=== PATIENT | female | born 1960 | race African-American/Black ===

== ENCOUNTER 2019-01-12 10:12 | Inpatient (IN) | payer OTHER ==
[2019-01-12 10:38] VITALS: BMI 32.3
--- NOTE | 2019-01-12 11:01 | HP ---
COWS - Scale Resting Pulse: 1= [place] 81-100 Sweatin= Chills/Flushing Restless Observation: 1= Difficult to Sit Still Pupil Size: 1= Pupils >than Normal Bone or Joint Aches: 2= Severe Diffuse Aches Runny Nose/ Eye Tearin= Nasal Congestion GI Upset > 30mins: 2= Nausea/Diarrhea Tremor Observation: 1= Tremor Bulger, Not Seen Yawning Observation: 0= None Anxiety or Irritability: 2=Irritable/Anxious Goose Flesh Skin: 0=Smooth Skin COWS Score: 12 CIWA Score - Admission Criteria OASAS Guidelines: Admission for Medically Managed Detox: Requires at least one of the followin. CIWA greater than 12 2. Seizures within the past 24 hours 3. Delirium tremens within the past 24 hours 4. Hallucinations within the past 24 hours 5. Acute intervention needed for co occurring medical disorder 6. Acute intervention needed for co occurring psychiatric disorder 7. Severe withdrawal that cannot be handled at a lower level of care (continued vomiting, continued diarrhea, abnormal vital signs) requiring intravenous medication and/or fluids 8. Admission ROS [facility] Allergies/Adverse Reactions: Allergies Allergy/AdvReac Type Severity Reaction Status Date / Time cats Allergy Uncoded 01/12/19 10:25 History of Present Illness: 58 yo with afib, and HTN, with OUD- says she wants to stop using. States she uses 3-4 bags of heroin a day-IH. Says has been heroin using for 30 days- has tried to stop. Was able to be opioid free for about 4 months when she stayed in [place]. When she returned to [facility] about 3 weeks ago restarted with heroin. Says she wants to stop. Has thought about [facility] treatment with Suboxone or methadone. Pt states she was living with BF- but broke up last week. Has been living with a friend. Pt states she does not work and will not have a place to stay after leaving here. Has no financial resources. PCP- [facility] Heroin 3-4 bags/day, no h/o OD, no narcan kit- pt instructed to get one from pharmacy Cocaine- occ THC- occ DUR- no meds - Ebola screening Have you traveled outside of the country in the last 21 days: No Have you had contact with anyone from an Ebola affected area: No - Review of Systems Constitutional: No Symptoms Reported EENT: reports: No Symptoms Reported Respiratory: reports: No Symptoms reported Cardiac: reports: No Symptoms Reported GI: reports: No Symptoms Reported : reports: No Symptoms Reported Musculoskeletal: reports: No Symptoms Reported Integumentary: reports: No Symptoms Reported Neuro: reports: No Symptoms reported Endocrine: reports: No Symptoms Reported Hematology: reports: No Symptoms Reported Psychiatric: reports: No Sypmtoms Reported, other (no suicidial/homicidal ideations) Patient History - Patient Medical History Hx Cardiac Disorders: Yes (a fib on medications) Hx Hypertension: Yes - Patient Surgical History Past Surgical History: No - PPD History PPD to be Administered?: Yes - Smoking Cessation Smoking history: Former smoker Have you smoked in the past 12 months: No Hx Chewing Tobacco Use: No Initiated information on smoking cessation: No - Substances abused Heroin Substance route: Inhalation Frequency: Daily Amount used: 3-4 bags Age of first use: 28 Date of last use: 01/09/19 Crack Substance route: Smoking Frequency: 1-2 times per week Amount used: 2 bags Age of first use: 28 Date of last use: 01/08/19 Admission Physical Exam BHS - Vital Signs Vital Signs: Vital Signs - 24 hr 01/12/19 10:33 Temperature 97.5 F L Pulse Rate 96 H Respiratory 20 Rate Blood Pressure 143/94 - Physical General Appearance: Yes: Within Normal Limits, Mild Distress HEENTM: Yes: Within Normal Limits, Hearing grossly Normal Respiratory: Yes: Within Normal Limits, Chest Non-Tender Neck: Yes: Within Normal Limits Cardiology: Yes: Irregularly Irregular Abdominal: Yes: Within Normal Limits, Non Tender, Protuberent Back: Yes: Within Normal Limits, Normal Inspection Musculoskeletal: Yes: Within Normal Limits Extremities: Yes: Within Normal Limits Neurological: Yes: Within Normal Limits, software quality assurance specialist II-XII NML intact, Fully Oriented Integumentary: Yes: Within Normal Limits, Normal Color - Diagnostic (1) Opioid use disorder Current Visit: Yes Status: Acute (2) Atrial fibrillation Current Visit: Yes Status: Acute (3) Cocaine use Current Visit: Yes Status: Acute (4) Marijuana use Current Visit: Yes Status: Acute (5) HTN (hypertension) Current Visit: Yes Status: Acute Inpatient Rehab Admission - Rehab Decision to Admit Inpatient rehab admission?: No
[2019-01-12] MEDS ORDERED: IBUPROFEN 400 MG TABLET (FP) PO PRN (11:11)
[2019-01-12] MEDS ORDERED: MENTHOL/PHENOL 1 EACH UD MM PRN (11:11)
[2019-01-12] MEDS ORDERED: MAGNESIUM HYDROX 2400MG/30ML ORAL SUSPENSION 30 ML CUP PO PRN (11:11)
[2019-01-12] MEDS ORDERED: hydrOXYzine PAMOATE 25 MG CAPSULE (FP) PO PRN (11:11)
[2019-01-12] MEDS ORDERED: NALOXONE HCL 0.4 MG/ML VIAL IM PRN (11:11)
[2019-01-12] MEDS ORDERED: MAG HYDROX/AL HYDROX/SIMETH 30 ML UNIT-DOSE CUP PO PRN (11:11)
[2019-01-12] MEDS ORDERED: BISMUTH SUBSALICYLATE 524 MG/30 ML UD PO PRN (11:11)
[2019-01-12] MEDS ORDERED: clonazePAM 0.5 MG TABLET PO PRN (11:11)
[2019-01-12] MEDS ORDERED: cloNIDine HCL 0.1 MG TABLET PO PRN (11:11)
[2019-01-12] MEDS ORDERED: MAGNESIUM CITRATE 300 ML BOTTLE PO PRN (11:11)
[2019-01-12] MEDS ORDERED: ACETAMINOPHEN 325 MG TABLET (FP) PO PRN ×2 (11:11)
[2019-01-12] MEDS ORDERED: MELATONIN 5 MG TABLETS PO PRN (11:11)
[2019-01-12] MEDS ORDERED: METHADONE HCL 10 MG TABLET (FOR DETOX USE ONLY) PO ONE (11:11)
[2019-01-12] MEDS ORDERED: METHOCARBAMOL 500 MG TABLET PO PRN (11:11)
[2019-01-12] MEDS: LOSARTAN POTASSIUM 50 MG TABLET (FP) PO SCH (21:40)
[2019-01-12] MEDS: THIAMINE HCL 100 MG TABLET (FP) PO SCH (21:40)
[2019-01-12] MEDS: APIXABAN 5 MG TABLET PO SCH (21:40)
[2019-01-12] MEDS: CARVEDILOL 25 MG TABLET (FP) PO SCH (21:40)
--- NOTE | 2019-01-13 08:38 | CONSULT ---
[facility] Psychiatric Consult - Data Date of interview: 01/13/19 Admission source: Self-referred Identifying data: Ms Jordan is a 58 years old single Black female, mother of 2 children, unemployed receiving food stamp, living with a froend seeking detox treatment fot opioid and cocaine Substance Abuse History: Reports history of heroin and crack cocaine use. Refer to addiction counselor's summary for further information Medical History: Significant for hypertension and AFib. Psychiatric History: Denies history of previous psychiatric treatment. However, reports feeling mildly depressed and sleeping poorly. Told script writer that she was medicated with Melatonin last night and did not find it helpful Physical/Sexual Abuse/Trauma History: Denies history of emotional, physical or sexual abuse as well as DV relationship Mental Status Exam - Mental Status Exam Alert and Oriented to: Time, Place, Person Cognitive Function: Fair Patient Appearance: Well Groomed Mood: Depressed (mildly) Patient Behavior: Cooperative Speech Pattern: Clear Voice Loudness: Normal Thought Process: Intact, Goal Oriented Hallucinations: Denies Suicidal Ideation: Denies Homicidal Ideation: Denies Insight/Judgement: Poor Sleep: Poorly Appetite: Good Muscle strength/Tone: Normal Gait/Station: Normal Psychiatric Findings - Problem List ([place] 1, 2,3) (1) Substance induced mood disorder Current Visit: Yes Status: Acute (2) Substance-induced sleep disorder Current Visit: Yes Status: Acute (3) Uncomplicated opioid dependence Current Visit: Yes Status: Acute (4) Cocaine abuse Current Visit: Yes Status: Acute (5) Atrial fibrillation Current Visit: Yes Status: Acute (6) HTN (hypertension) Current Visit: Yes Status: Acute - Initial Treatment Plan Initial Treatment Plan: 1) Start Belsomra 10 mg po HS prn for insomnia. 2) Continue inpatient detoxification
[2019-01-13] MEDS ORDERED: METHADONE HCL 5 MG TABLET (FOR DETOX USE ONLY) PO ONE (10:00)
[2019-01-13 10:06] LABS: HEMATOCRIT 38.6 % (32.4-45.2); HEMOGLOBIN 12.7 GM/dL (10.7-15.3); MCH 32.3 pg (25.7-33.7); MEAN CELL VOLUME 97.9 fl (80-96); MEAN PLT VOLUME 8.6 fl (7.5-11.1); PLATELET COUNT 265 K/MM3 (134-434); RBC 3.94 M/mm3 (3.60-5.2); WHITE BLOOD COUNT 4.4 K/mm3 (4.0-10.0)
[2019-01-13 10:11] LABS: ALBUMIN 3.5 g/dl (3.4-5.0); BILIRUBIN,TOTAL 1.3 mg/dL (0.2-1); BLOOD UREA NITROGEN 16.4 mg/dL (7-18); CREATININE 0.8 mg/dL (0.55-1.3); POTASSIUM 4.4 mmol/L (3.5-5.1); TOT PROT 6.2 g/dl (6.4-8.2)
[2019-01-13] MEDS: PRENATAL VITAMINS W/ FOLIC ACID TABLET (FP) PO SCH (10:26)
[2019-01-13] MEDS: NIFEdipine E.R 60 MG TABLET (UD) PO SCH (10:27)
[2019-01-13] MEDS: LOSARTAN POTASSIUM 50 MG TABLET (FP) PO SCH ×2 (10:27→22:07)
[2019-01-13] MEDS: CHOLECALCIFEROL (VIT D3) 1,000 UNIT (25 MCG) TABLET PO SCH (10:28)
[2019-01-13] MEDS: APIXABAN 5 MG TABLET PO SCH ×2 (10:28→22:07)
[2019-01-13] MEDS: CARVEDILOL 25 MG TABLET (FP) PO SCH ×2 (10:28→22:07)
--- NOTE | 2019-01-13 13:06 | EKG ---
Test Reason : Blood Pressure : / mmHG Vent. Rate : 088 BPM Atrial Rate : 079 BPM P-R Int : 000 ms QRS Dur : 084 ms QT Int : 374 ms P-R-T Axes : 000 060 055 degrees QTc Int : 452 ms ATRIAL FIBRILLATION LOW VOLTAGE QRS CANNOT RULE OUT ANTERIOR INFARCT , AGE UNDETERMINED ABNORMAL ECG NO PREVIOUS ECGS AVAILABLE Confirmed by LAMAR PEREZ MD ([id number]) on 01/13/2019 1:05:50 PM Referred By: Confirmed By:LAMAR PEREZ MD
[2019-01-13 14:27] LABS: RPR REACTIVE 1:2 (NONREACTIVE)
--- NOTE | 2019-01-13 19:14 | PN ---
BHS COWS - Scale Resting Pulse: 1= [place] 81-100 Sweatin= Chills/Flushing Restless Observation: 1= Difficult to Sit Still Pupil Size: 0= Normal to Room Light Bone or Joint Aches: 2= Severe Diffuse Aches Runny Nose/ Eye Tearin= Nasal Congestion GI Upset > 30mins: 0= None Tremor Observation of Outstretched Hands: 0= None Yawning Observation: 1= 1-2x During Session Anxiety or Irritability: 2=Irritable/Anxious Goose Flesh Skin: 3=Piloerection COWS Score: 12 BHS Progress Note (SOAP) Subjective: Body Aches, Chills, Nasal Congestion. Patient reports That Current withdrawal Detox Symptoms in General Are Subsiding in Severity. Objective: PATIENT A & O X 3, OBSERVED AMBULATING ON DETOX UNIT UNASSISTED. IN NO ACUTE DISTRESS. 01/13/19 19:15 Vital Signs Temperature 97.7 F 01/13/19 17:14 Pulse Rate 91 H 01/13/19 17:14 Respiratory Rate 18 01/13/19 17:14 Blood Pressure 108/71 01/13/19 17:14 O2 Sat by Pulse Oximetry (%) Laboratory Tests 01/13/19 01/13/19 01/13/19 08:00 08:00 08:00 WBC 4.4 RBC 3.94 Hgb 12.7 Hct 38.6 MCV 97.9 H MCH 32.3 MCHC 33.0 RDW 13.0 Plt Count 265 MPV 8.6 Sodium 142 Potassium 4.4 Chloride 108 H Carbon Dioxide 26 Anion Gap 8 BUN 16.4 Creatinine 0.8 Est GFR (CKD-EPI)AfAm 92.87 Est GFR (CKD-EPI)NonAf 80.13 Random Glucose 75 Calcium 9.0 Total Bilirubin 1.3 H AST 14 L ALT 25 Alkaline Phosphatase 39 L Total Protein 6.2 L Albumin 3.5 RPR Titer Reactive 1:2 H LABS NOTED. DETOX ADMISSION RPR RESULT NOTED: REACTIVE 1:1 ([facility]: PENDING). PATIENT DENIES PREVIOUS TREATMENT FOR SYPHILIS IN THE PAST. 01/13/19 19:17 Assessment: 01/13/19 19:16 WITHDRAWAL SYMPTOMS. HYPERTBILIRUBINEMIA. REACTIVE RPR. Plan: CONTINUE DETOX. AWAITING [facility] RESULT FOR RPR.
[2019-01-13] MEDS ORDERED: SUVOREXANT 10 MG TABLET PO PRN (22:00)
[2019-01-13] MEDS: THIAMINE HCL 100 MG TABLET (FP) PO SCH (22:07)
[2019-01-14] MEDS ORDERED: METHADONE HCL 10 MG TABLET (FOR DETOX USE ONLY) PO ONE (10:00)
[2019-01-14] MEDS: LOSARTAN POTASSIUM 50 MG TABLET (FP) PO SCH ×2 (10:10→22:10)
[2019-01-14] MEDS: CARVEDILOL 25 MG TABLET (FP) PO SCH ×2 (10:10→22:10)
[2019-01-14] MEDS: PRENATAL VITAMINS W/ FOLIC ACID TABLET (FP) PO SCH (10:10)
[2019-01-14] MEDS: APIXABAN 5 MG TABLET PO SCH ×2 (10:10→22:09)
[2019-01-14] MEDS: CHOLECALCIFEROL (VIT D3) 1,000 UNIT (25 MCG) TABLET PO SCH (10:10)
[2019-01-14] MEDS: NIFEdipine E.R 60 MG TABLET (UD) PO SCH (10:10)
[2019-01-14 10:50] LABS: TREPONEMA ANTIBODY REACTIVE (NONREACTIVE)
[2019-01-14] MEDS ORDERED: PENICILLIN G BENZATHINE 2,400,000 UNIT/4 ML PFS IM ONE (14:00)
--- NOTE | 2019-01-14 14:07 | PN ---
BHS COWS - Scale Resting Pulse: 1= [place] 81-100 Sweatin= No chills or Flushing Restless Observation: 1= Difficult to Sit Still Pupil Size: 0= Normal to Room Light Bone or Joint Aches: 1= Mild Discomfort Runny Nose/ Eye Tearin= None GI Upset > 30mins: 0= None Tremor Observation of Outstretched Hands: 0= None Yawning Observation: 1= 1-2x During Session Anxiety or Irritability: 2=Irritable/Anxious Goose Flesh Skin: 0=Smooth Skin COWS Score: 6 BHS Progress Note (SOAP) Subjective: Body Aches, Anxious, Restless. Patient reports that current Withdrawal / Detox symptoms are minimal in degree at this time and that she feels well overall Objective: PATIENT A & O X 3, OBSERVED AMBULATING ON DETOX UNIT UNASSISTED. IN NO ACUTE DISTRESS. 01/14/19 14:01 Vital Signs Temperature 97.0 F L 01/14/19 13:18 Pulse Rate 86 01/14/19 13:18 Respiratory Rate 18 01/14/19 13:18 Blood Pressure 126/88 01/14/19 13:18 O2 Sat by Pulse Oximetry (%) Laboratory Tests 01/13/19 01/13/19 01/13/19 08:00 08:00 08:00 WBC 4.4 RBC 3.94 Hgb 12.7 Hct 38.6 MCV 97.9 H MCH 32.3 MCHC 33.0 RDW 13.0 Plt Count 265 MPV 8.6 Sodium 142 Potassium 4.4 Chloride 108 H Carbon Dioxide 26 Anion Gap 8 BUN 16.4 Creatinine 0.8 Est GFR (CKD-EPI)AfAm 92.87 Est GFR (CKD-EPI)NonAf 80.13 Random Glucose 75 Calcium 9.0 Total Bilirubin 1.3 H AST 14 L ALT 25 Alkaline Phosphatase 39 L Total Protein 6.2 L Albumin 3.5 RPR Titer Reactive 1:2 H T.pallidum Ab (MHA) Reactive LABS NOTED. [facility]ATP RESULT NOTED: REACTIVE. PATIENT UNABLE TO RECALL FOR CERTAIN WHETHER OR NOT SHE WAS TREATED FOR SYPHILIS IN THE PAST. Assessment: 01/14/19 14:02 WITHDRAWAL SYMPTOMS. REACTIVE RPR. HYPERBILIRUBINEMIA. 01/14/19 14:03 Plan: CONTINUE DETOX. PRECAUTION, BICILLIN L-A, 2.4 MILLION UNITS IM ORDERED FIRST INSTALLMENT OF TREATMENT FOR REACTIVE RRP RESULT. PATIENT ADVISED TO FOLLOW-UP WITH SUPERVISOR [employer] OR WITH MEDICAL PROVIDER IN REHAB FACILITY AFTER DISCHARGE FROM DETOX FOR SUBSEQUENT INSTALLMENTS OF BICILLIN. PATIENT VERBALIZED UNDERSTANDING OF RECOMMENDATION. PATIENT SCHEDULED FOR DISCHARGE FROM DETOX UNIT TOMORROW.
[2019-01-14] MEDS: THIAMINE HCL 100 MG TABLET (FP) PO SCH (22:10)
[2019-01-15] MEDS ORDERED: METHADONE HCL 5 MG TABLET (FOR DETOX USE ONLY) PO ONE (06:00)
[2019-01-15 09:31] VITALS: BP 137/92; PULSE 99; TEMP 98.2
[2019-01-15] MEDS: CARVEDILOL 25 MG TABLET (FP) PO SCH (09:50)
[2019-01-15] MEDS: NIFEdipine E.R 60 MG TABLET (UD) PO SCH (09:50)
[2019-01-15] MEDS: PRENATAL VITAMINS W/ FOLIC ACID TABLET (FP) PO SCH (09:50)
[2019-01-15] MEDS: CHOLECALCIFEROL (VIT D3) 1,000 UNIT (25 MCG) TABLET PO SCH (09:50)
[2019-01-15] MEDS: APIXABAN 5 MG TABLET PO SCH (09:51)
[2019-01-15] MEDS: LOSARTAN POTASSIUM 50 MG TABLET (FP) PO SCH (09:53)
--- NOTE | 2019-01-15 17:48 | DS ---
[facility] Detox Discharge Summary Admission Date: 01/12/19 Discharge Date: 01/15/19 - History Present History: Cannabis Dependence, Cocaine Dependence, Opioid Dependence Additional Comments: PATIENT GOING TO [facility] ([place], [place]) FOR AFTERCARE. ADMISSION/LEVEL VIAL SETTER AT [facility] MADE AWARE (VIA TELEPHONE PRIOR TO PATIENT'S DISCHARGE FROM DETOX UNIT) OF REACTIVE RPR RESULT NOTED WHILE PATIENT WAS ADMITTED FOR DETOX. PAPERWORK NOTING RESULT AND INDICATING THAT FIRST INSTALLMENT OF BICILLIN TREATMENT THAT WAS ADMINISTERED YESTERDAY FOR REACTIVE RPR RESULT SENT TO [facility] WITH PATIENT TO BE NOTED ON ADMISSION THERE. PATIENT WAS DISCHARGED FROM DETOX UNIT IN STABLE MEDICAL CONDITION. Pertinent Past History: History Of Atrial Fibrillation, HTN, Reactive RPR, Hyperbilirubinemia. - Physical Exam Results Vital Signs: Vital Signs Temperature 98.2 F 01/15/19 09:30 Pulse Rate 99 H 01/15/19 09:30 Respiratory Rate 16 01/15/19 09:30 Blood Pressure 137/92 01/15/19 09:30 O2 Sat by Pulse Oximetry (%) Pertinent Admission Physical Exam Findings: WITHDRAWAL SYMPTOMS. Laboratory Tests 01/13/19 01/13/19 01/13/19 08:00 08:00 08:00 WBC 4.4 RBC 3.94 Hgb 12.7 Hct 38.6 MCV 97.9 H MCH 32.3 MCHC 33.0 RDW 13.0 Plt Count 265 MPV 8.6 Sodium 142 Potassium 4.4 Chloride 108 H Carbon Dioxide 26 Anion Gap 8 BUN 16.4 Creatinine 0.8 Est GFR (CKD-EPI)AfAm 92.87 Est GFR (CKD-EPI)NonAf 80.13 Random Glucose 75 Calcium 9.0 Total Bilirubin 1.3 H AST 14 L ALT 25 Alkaline Phosphatase 39 L Total Protein 6.2 L Albumin 3.5 RPR Titer Reactive 1:2 H T.pallidum Ab (MHA) Reactive LABS NOTED. - Treatment Hospital Course: Detox Protocol Followed, Detoxed Safely, Responded well, Discharged Condition Good, Rehab Referral Accepted Patient has Accepted a Rehab Referral to: [facility] ([place], [place]). - Medication Discharge Medications: Ambulatory Orders Alendronate Sodium [Fosamax] 1 tab PO WEEKLY 01/12/19 Apixaban [Eliquis -] 5 mg PO BID 01/12/19 Carvedilol [Coreg -] 25 mg PO BID 01/12/19 Cholecalciferol (Vitamin D3) [Vitamin D3 -] 1,000 unit PO DAILY 01/12/19 Losartan Potassium [Cozaar -] 50 mg PO BID 01/12/19 Nifedipine ER [Procardia Xl -] 60 mg PO DAILY 01/12/19 Varenicline Tartrate [Chantix] 1 mg PO BID 01/12/19 - Diagnosis (1) Atrial fibrillation Status: Acute Qualifiers: Atrial fibrillation type: unspecified Qualified Code(s): I48.91 - Unspecified atrial fibrillation (2) Cocaine abuse Status: Acute (3) HTN (hypertension) Status: Acute Qualifiers: Hypertension type: unspecified Qualified Code(s): I10 - Essential (primary ) hypertension (4) Hyperbilirubinemia Status: Acute (5) Marijuana use Status: Acute (6) Opioid use disorder Status: Acute (7) Positive RPR test Status: Acute (8) Substance induced mood disorder Status: Acute (9) Substance-induced sleep disorder Status: Acute (10) Uncomplicated opioid dependence Status: Acute - AMA Did Patient Leave Against Medical Advice: No BHS COWS - Scale Resting Pulse: 1= [place] 81-100 Sweatin= No chills or Flushing Restless Observation: 1= Difficult to Sit Still Pupil Size: 0= Normal to Room Light Bone or Joint Aches: 1= Mild Discomfort Runny Nose/ Eye Tearin= None GI Upset > 30mins: 0= None Tremor Observation of Outstretched Hands: 0= None Yawning Observation: 1= 1-2x During Session Anxiety or Irritability: 0= None Goose Flesh Skin: 0=Smooth Skin COWS Score: 4
== END 2019-01-15 09:58 | disposition home or self-care (01) | DRG 773 ==
LOC: YASAS 10:12 → Y3N 11:30
PROVIDERS: ADMIT Allergy & Immunology; ATTEND Allergy & Immunology
PROC: HZ2ZZZZ Detoxification Services for Substance Abuse Treatment (ICD-10-PCS; principal; 2019-01-12)
DX: F11.23 Opioid dependence with withdrawal (principal); F14.10 Cocaine abuse, uncomplicated; F12.90 Cannabis use, unspecified, uncomplicated; F19.24 Other psychoactive substance dependence with psychoactive substance-induced mood disorder; F19.282 Other psychoactive substance dependence with psychoactive substance-induced sleep disorder; I10 Essential (primary) hypertension; I48.91 Unspecified atrial fibrillation; E80.6 Other disorders of bilirubin metabolism; R76.11 Nonspecific reaction to tuberculin skin test without active tuberculosis; Z91.048 Other nonmedicinal substance allergy status; Z87.891 Personal history of nicotine dependence
CPT/HCPCS: 36415; 80053; 85027; 86593; 86780; 93005; 93010